=== PATIENT | female | born 1950 | race Caucasian/White ===

== ENCOUNTER → 2017-03-16 | Outpatient (CLI) | payer OTHER ==
[~2017-03-16] MED LIST: ACETAMINOPHEN325 M1 PO; ALEVE220 M1 PO; ASPERCREME 1141.7 GM TP; CALCIUM 600 +1 EAC1 PO; GLUCOSAMINE-CH1 EACH PO; MULTIVITAMINS1 EAC7 PO
== END ==
LOC: CAT 08:03
DX: Z13.6 Encounter for screening for cardiovascular disorders (principal)

== ENCOUNTER → 2018-02-14 | Outpatient (CLI) | payer OTHER | LOC: ULTRA 08:01 | DX: Z13.6 Encounter for screening for cardiovascular disorders (principal); Z82.49 Family history of ischemic heart disease and other diseases of the circulatory system; Z82.3 Family history of stroke; I10 Essential (primary) hypertension; C50.919 Malignant neoplasm of unspecified site of unspecified female breast; E78.5 Hyperlipidemia, unspecified ==

== ENCOUNTER → 2018-10-10 | Outpatient (CLI) | payer OTHER | LOC: RAD 13:44 | DX: J18.9 Pneumonia, unspecified organism (principal) ==

== ENCOUNTER → 2019-05-23 | Outpatient (CLI) | payer OTHER | LOC: ULTRA 09:49 | DX: M79.605 Pain in left leg (principal) ==

== ENCOUNTER → 2019-12-28 | Outpatient (CLI) | payer OTHER | LOC: MRI 06:57 | PROVIDERS: ATTEND Family Medicine | DX: R90.82 White matter disease, unspecified (principal); H69.81 Other specified disorders of Eustachian tube, right ear ==